=== PATIENT | male | born 1975 | race Caucasian/White ===

== ENCOUNTER 2020-10-15 21:20 | Emergency (ER) | payer OTHER ==
[2020-10-15] MEDS ORDERED: Cyclobenzaprine 10 MG TAB ONE (22:39)
== END 2020-10-15 22:55 | disposition home or self-care (01) ==
LOC: MADERS 21:20
DX: M62.830 Muscle spasm of back (principal); Z87.442 Personal history of urinary calculi; W17.89XA Other fall from one level to another, initial encounter
CPT/HCPCS: 99283